=== PATIENT | male | born 1980 | race Caucasian/White ===

== ENCOUNTER → 2021-06-04 | Outpatient (CLI) | payer OTHER ==
[2021-06-06 05:07] LABS: HSV TYPE I IgG SPECIFIC >62.20 index (0.00-0.90); HSV TYPE II IgG SPECIFIC <0.91 index (0.00-0.90)
== END ==
LOC: M PLALAB 14:21
PROVIDERS: ATTEND Physician Assistant
DX: M54.40 Lumbago with sciatica, unspecified side (principal)
CPT/HCPCS: 36415; 86695; 86696; G0463